=== PATIENT | male | born 1965 | race Two or more races ===

== ENCOUNTER 2023-06-12 10:48 | Day surgery (SDC) | payer MEDICAID ==
[~2023-06-12] VITALS: Ht 180.3 cm; Wt 95.7 kg
[2023-06-12] MEDS ORDERED: fentaNYL citrate 0.05 MG/ML VIAL ONE (12:28)
[2023-06-12] MEDS ORDERED: MIDAZOLAM 5 MG/5 ML VIAL ONE (12:29)
[2023-06-12] MEDS ORDERED: fentaNYL citrate 0.05 MG/ML VIAL IVP ONE (13:55)
== END 2023-06-12 13:47 | disposition home or self-care (01) ==
LOC: MDS 10:48 → MMU 10:50 → MDS 13:47
PROVIDERS: ATTEND Internal Medicine Gastroenterology
DX: K59.00 Constipation, unspecified (principal); K63.5 Polyp of colon; I10 Essential (primary) hypertension; F32.A Depression, unspecified; Z79.82 Long term (current) use of aspirin; Z79.899 Other long term (current) drug therapy
CPT/HCPCS: 45380; 45385; J3010; 88305; J2250